=== PATIENT | male | born 1960 | race Caucasian/White ===

== ENCOUNTER 2018-09-30 06:40 | Inpatient (IN) | payer OTHER ==
[2018-09-30] MEDS ORDERED: DESFLURANE 15 MIN (07:00)
[2018-09-30] MEDS ORDERED: ROCURONIUM 50 MG INJ ×2 (07:00→08:02)
[2018-09-30] MEDS ORDERED: PROPOFOL 200 MG INJ (07:00)
[2018-09-30] MEDS ORDERED: HEPARIN 1000 UNITS/ML 10 ML INJ (07:59)
[2018-09-30] MEDS ORDERED: BUPIVACAINE 0.5%/EPI (SDV) 30 ML INJ ×2 (07:59→14:45)
[2018-09-30] MEDS: VANCOMYCIN 1 GM (PMX) 250 ML IVPB (08:00)
[2018-09-30] MEDS ORDERED: SUCCINYLCHOLINE CHLORIDE 100 MG/5 ML SYG IV (08:02)
[2018-09-30] MEDS ORDERED: MIDAZOLAM 1 MG/ML 2 ML INJ (08:03)
[2018-09-30] MEDS ORDERED: LIDOCAINE 1% (MDV) 20 ML INJ (08:07)
[2018-09-30] MEDS ORDERED: DEXAMETHASONE 4 MG/ML 5 ML INJ (09:10)
[2018-09-30] MEDS ORDERED: ONDANSETRON 4 MG INJ (09:10)
[2018-09-30] MEDS: CEFAZOLIN 1 GM INJ (09:14)
[2018-09-30] MEDS: THROMBIN 5000 UNIT VIAL (09:14)
[2018-09-30] MEDS: GELATIN SIZE 100 SPONGE (09:14)
[2018-09-30] MEDS ORDERED: LABETALOL HCL 20MG INJ (09:15)
[2018-09-30] MEDS ORDERED: ROPIVACAINE 0.5 % 30 ML VIAL (12:15)
[2018-09-30] MEDS ORDERED: SUGAMMADEX SODIUM 200 MG/2 ML VIAL IV (12:40)
[2018-09-30] MEDS ORDERED: PHENYLephrine (100 MCG/ML) 5ML SYG (15:17)
[2018-09-30] MEDS ORDERED: METOPROLOL 5 MG INJ (15:17)
[2018-09-30] MEDS ORDERED: SOD CHLORIDE 0.45% 1,000 ML IV (15:25)
[2018-09-30] MEDS ORDERED: ACETAMINOPHEN 325 MG TAB PO (15:30)
[2018-09-30] MEDS ORDERED: HYDROCODONE/APAP (5/325) TAB PO ×2 (15:30)
[2018-09-30] MEDS ORDERED: NACL 0.9% 3 ML SYG IV (15:30)
[2018-09-30] MEDS ORDERED: NALOXONE (0.4 MG/ML) INJ IV (15:30)
[2018-09-30] MEDS ORDERED: PROCHLORPERAZINE 10 MG TAB PO (15:30)
[2018-09-30] MEDS: HYDROmorphONE 1 MG/5 ML IV SYRINGE IV ×3 (15:55→16:05)
[2018-09-30] MEDS ORDERED: HYDROmorphONE 1 MG/5 ML IV SYRINGE IV ×3 (15:56→16:06)
[2018-09-30] MEDS ORDERED: hydrALAzine 20 MG INJ IV (16:00)
[2018-09-30] MEDS ORDERED: ONDANSETRON 4 MG INJ IV ×2 (16:00→17:00)
[2018-09-30] MEDS ORDERED: LABETALOL HCL 20MG INJ IV (16:00)
[2018-09-30] MEDS ORDERED: MEPERIDINE 25 MG INJ (16:30)
[2018-09-30 16:46] LABS: ADD MAN DIFF? NO
[2018-09-30 16:47] LABS: WHITE BLOOD COUNT 9.7 10^3/ul (4.8-10.8)
[2018-09-30 16:47] LABS: ABNORMAL IP MESSAGE 1; BASOPHILS % 0.2 % (0.0-2.0); EOSINOPHILS % 0.1 % (0.0-7.0); HEMATOCRIT 32.2 % (42.0-52.0); HEMOGLOBIN 11.3 g/dl (14.0-18.0); LYMPHOCYTES # 0.5 10^3/ul (0.8-2.9); LYMPHOCYTES % 5.4 % (15.0-51.0); MEAN CORPUSCULAR HGB CONC 35.1 g/dl (32.0-37.0); MEAN CORPUSCULAR VOLUME 85.4 fl (82.0-101.0); MEAN PLATELET VOLUME 9.5 fl (7.4-10.4); MONOCYTE # 0.4 10^3/ul (0.3-0.9); MONOCYTES % 4.1 % (0.0-11.0); NEUTROPHIL # 8.7 10^3/ul (1.6-7.5); NEUTROPHILS % 89.6 % (39.0-77.0); PLATELET COUNT 212 10^3/UL (140-415); POSITIVE DIFF @See below; RED BLOOD COUNT 3.77 10^6/ul (4.70-6.10); RED CELL DISTRIBUTION WIDTH 13.2 % (11.5-14.5)
[2018-09-30] MEDS: MEPERIDINE 25 MG INJ IV (16:49)
[2018-09-30] MEDS: DIPHENHYDRAMINE 50 MG INJ IV (16:49)
[2018-09-30] MEDS: HYDROmorphONE 0.2 MG/ML PCA IV (16:58)
[2018-09-30 17:05] LABS: ANION GAP 12 (5-13); BLOOD UREA NITROGEN 20 mg/dl (7-20); CARBON DIOXIDE 21 mmol/L (21-31); CHLORIDE 102 mmol/L (97-110); CREATINE KINASE 490 IU/L (23-200); Estimated GFR 58 mL/min (>60); GLUCOSE 244 mg/dl (70-220); POTASSIUM 4.3 mmol/L (3.5-5.1); SODIUM 135 mmol/L (135-144)
[2018-09-30 17:07] LABS: CALCIUM 8.3 mg/dl (8.4-10.2); CREATININE 1.27 mg/dl (0.61-1.24)
[2018-09-30 17:17] LABS: CK INDEX 0.6; TROPONIN-I < 0.012 ng/ml (0.000-0.120)
[2018-09-30 17:20] LABS: CK-MB 2.99 ng/ml (0.0-2.4)
[2018-09-30] MEDS ORDERED: GLUCOSE GEL 15 GRAM TUBE BUCCAL (18:30)
[2018-09-30] MEDS ORDERED: GLUCAGON 1 MG INJ IM (18:30)
[2018-09-30] MEDS ORDERED: GLUCOSE GEL 15 GRAM TUBE PO ×2 (18:30)
[2018-09-30] MEDS ORDERED: DEXTROSE 50% 50 ML SYRINGE IV ×2 (18:30)
[2018-09-30] MEDS: SOD CHLORIDE 0.9% 1,000 ML IV (19:40)
[2018-09-30] MEDS: ONDANSETRON 4 MG INJ IV (19:59)
[2018-09-30] MEDS: ATORVASTATIN 80 MG TAB PO (21:00)
[2018-09-30] MEDS: AL HYDROX/MG HYDROX/SIMETH 30 ML CUP PO (22:45)
[2018-09-30] MEDS: CALCIUM CARBONATE 500 MG CHEW TAB PO (23:31)
[2018-10-01] MEDS: ACCU-CHEK XX (02:00)
[2018-10-01] MEDS: SOD CHLORIDE 0.9% 1,000 ML IV ×4 (02:19→23:56)
[2018-10-01] MEDS: CYCLOBENZAPRINE 10 MG TAB PO ×2 (03:23→12:40)
[2018-10-01] MEDS: ONDANSETRON 4 MG INJ IV ×2 (03:28→09:17)
[2018-10-01 05:27] LABS: HEMATOCRIT 30.5 % (42.0-52.0); HEMOGLOBIN 10.5 g/dl (14.0-18.0)
[2018-10-01 05:52] LABS: ANION GAP 8 (5-13); BLOOD UREA NITROGEN 16 mg/dl (7-20); CALCIUM 7.9 mg/dl (8.4-10.2); CARBON DIOXIDE 28 mmol/L (21-31); CHLORIDE 101 mmol/L (97-110); CREATININE 1.12 mg/dl (0.61-1.24); Estimated GFR > 60 mL/min (>60); GLUCOSE 159 mg/dl (70-220); POTASSIUM 3.9 mmol/L (3.5-5.1); SODIUM 137 mmol/L (135-144)
[2018-10-01 06:15] LABS: PHOSPHORUS 4.1 mg/dl (2.5-4.9)
[2018-10-01 06:15] LABS: MAGNESIUM 1.2 mg/dl (1.7-2.5)
[2018-10-01] MEDS: DOCUSATE SODIUM 100 MG CAP PO ×2 (08:38→20:55)
[2018-10-01] MEDS: LOSARTAN 50 MG TAB PO (08:38)
[2018-10-01] MEDS: metFORMIN 500 MG TAB PO ×2 (08:38→17:47)
[2018-10-01] MEDS: INSULIN ASPART [NOVOLOG] 3 ML PEN SC ×3 (08:41→17:46)
[2018-10-01] MEDS: HYDROmorphONE 0.2 MG/ML PCA IV ×2 (09:30→21:01)
[2018-10-01] MEDS: LORAZEPAM 2 MG INJ IV (11:32)
[2018-10-01] MEDS: MAGNESIUM SULFATE 3 GM in DEXTROSE 5% 100 ML IVPB (12:40)
[2018-10-01 13:28] LABS: CREATINE KINASE 846 IU/L (23-200)
[2018-10-01] MEDS ORDERED: DIAZEPAM 2 MG TAB PO (14:00)
[2018-10-01] MEDS: CALCIUM CARBONATE 500 MG CHEW TAB PO ×3 (14:06→21:00)
[2018-10-01] MEDS: DIAZEPAM 2 MG TAB PO ×2 (15:13→23:10)
[2018-10-01] MEDS: ATORVASTATIN 80 MG TAB PO (20:55)
[2018-10-02] MEDS: ACCU-CHEK XX (02:00)
[2018-10-02] MEDS: CYCLOBENZAPRINE 10 MG TAB PO ×2 (04:30→15:43)
[2018-10-02 05:16] LABS: ADD MAN DIFF? NO
[2018-10-02 05:19] LABS: WHITE BLOOD COUNT 7.7 10^3/ul (4.8-10.8)
[2018-10-02 05:19] LABS: BASOPHILS % 0.1 % (0.0-2.0); EOSINOPHILS % 0.3 % (0.0-7.0); HEMATOCRIT 29.2 % (42.0-52.0); HEMOGLOBIN 9.7 g/dl (14.0-18.0); LYMPHOCYTES # 0.6 10^3/ul (0.8-2.9); LYMPHOCYTES % 8.2 % (15.0-51.0); MEAN CORPUSCULAR HEMOGLOBIN 29.7 pg (29.0-33.0); MEAN CORPUSCULAR HGB CONC 33.2 g/dl (32.0-37.0); MEAN CORPUSCULAR VOLUME 89.3 fl (82.0-101.0); MEAN PLATELET VOLUME 9.6 fl (7.4-10.4); MONOCYTE # 0.7 10^3/ul (0.3-0.9); MONOCYTES % 8.8 % (0.0-11.0); NEUTROPHIL # 6.4 10^3/ul (1.6-7.5); NEUTROPHILS % 82.3 % (39.0-77.0); PLATELET COUNT 177 10^3/UL (140-415); RED BLOOD COUNT 3.27 10^6/ul (4.70-6.10); RED CELL DISTRIBUTION WIDTH 13.5 % (11.5-14.5)
[2018-10-02 05:43] LABS: ALANINE AMINOTRANSFERASE 35 IU/L (13-69); ALBUMIN 2.8 g/dl (3.3-4.9); ALBUMIN/GLOBULIN RATIO 1.12; ALKALINE PHOSPHATASE 54 IU/L (42-121); ANION GAP 3 (5-13); ASPARTATE AMINO TRANSFERASE 43 IU/L (15-46); BLOOD UREA NITROGEN 8 mg/dl (7-20); CALCIUM 7.3 mg/dl (8.4-10.2); CARBON DIOXIDE 30 mmol/L (21-31); CHLORIDE 104 mmol/L (97-110); CREATINE KINASE 981 IU/L (23-200); CREATININE 1.03 mg/dl (0.61-1.24); Estimated GFR > 60 mL/min (>60); GLUCOSE 154 mg/dl (70-220); MAGNESIUM 1.7 mg/dl (1.7-2.5); POTASSIUM 4.1 mmol/L (3.5-5.1); SODIUM 137 mmol/L (135-144); TOTAL PROTEIN 5.3 g/dl (6.1-8.1)
[2018-10-02] MEDS: SOD CHLORIDE 0.9% 1,000 ML IV ×2 (07:41→17:57)
[2018-10-02] MEDS: HYDROmorphONE 0.2 MG/ML PCA IV (09:05)
[2018-10-02] MEDS: DOCUSATE SODIUM 100 MG CAP PO ×2 (09:08→20:13)
[2018-10-02] MEDS: CALCIUM CARBONATE 500 MG CHEW TAB PO ×4 (09:08→20:13)
[2018-10-02] MEDS: LOSARTAN 50 MG TAB PO (09:09)
[2018-10-02] MEDS: INSULIN ASPART [NOVOLOG] 3 ML PEN SC ×3 (09:11→17:58)
[2018-10-02] MEDS: metFORMIN 500 MG TAB PO ×2 (09:14→17:57)
[2018-10-02] MEDS: DIAZEPAM 2 MG TAB PO (11:29)
[2018-10-02] MEDS: MAGNESIUM SULFATE 2 GM/50 ML 50 ML IVPB (11:31)
[2018-10-02] MEDS: LIDOCAINE 5% PATCH TD (12:51)
[2018-10-02] MEDS: DEXAMETHASONE 10 MG/ML 1 ML INJ IV (15:43)
[2018-10-02] MEDS: ATORVASTATIN 80 MG TAB PO (20:13)
[2018-10-03] MEDS: SOD CHLORIDE 0.9% 1,000 ML IV ×4 (00:57→18:19)
[2018-10-03] MEDS: ACCU-CHEK XX (02:00)
[2018-10-03] MEDS: DEXAMETHASONE 10 MG/ML 1 ML INJ IV (02:38)
[2018-10-03] MEDS: HYDROmorphONE 0.2 MG/ML PCA IV (04:35)
[2018-10-03 05:35] LABS: ADD MAN DIFF? NO
[2018-10-03 05:37] LABS: WHITE BLOOD COUNT 7.5 10^3/ul (4.8-10.8)
[2018-10-03 05:37] LABS: ABNORMAL IP MESSAGE 1; BASOPHILS % 0.1 % (0.0-2.0); HEMATOCRIT 25.6 % (42.0-52.0); HEMOGLOBIN 8.7 g/dl (14.0-18.0); LYMPHOCYTES # 0.3 10^3/ul (0.8-2.9); LYMPHOCYTES % 4.1 % (15.0-51.0); MEAN CORPUSCULAR HEMOGLOBIN 29.5 pg (29.0-33.0); MEAN CORPUSCULAR VOLUME 86.8 fl (82.0-101.0); MONOCYTE # 0.3 10^3/ul (0.3-0.9); MONOCYTES % 4.1 % (0.0-11.0); NEUTROPHIL # 6.8 10^3/ul (1.6-7.5); NEUTROPHILS % 90.9 % (39.0-77.0); PLATELET COUNT 163 10^3/UL (140-415); POSITIVE DIFF @See below; RED BLOOD COUNT 2.95 10^6/ul (4.70-6.10); RED CELL DISTRIBUTION WIDTH 13.1 % (11.5-14.5)
[2018-10-03 05:57] LABS: ALANINE AMINOTRANSFERASE 36 IU/L (13-69); ALBUMIN 2.9 g/dl (3.3-4.9); ALBUMIN/GLOBULIN RATIO 1.07; ALKALINE PHOSPHATASE 63 IU/L (42-121); ANION GAP 7 (5-13); ASPARTATE AMINO TRANSFERASE 49 IU/L (15-46); BILIRUBIN,INDIRECT 0.7 mg/dl (0-1.1); BILIRUBIN,TOTAL 0.7 mg/dl (0.2-1.3); BLOOD UREA NITROGEN 9 mg/dl (7-20); CALCIUM 7.8 mg/dl (8.4-10.2); CARBON DIOXIDE 26 mmol/L (21-31); CHLORIDE 103 mmol/L (97-110); CREATINE KINASE 1040 IU/L (23-200); CREATININE 0.87 mg/dl (0.61-1.24); Estimated GFR > 60 mL/min (>60); GLUCOSE 149 mg/dl (70-220); MAGNESIUM 1.9 mg/dl (1.7-2.5); POTASSIUM 4.2 mmol/L (3.5-5.1); SODIUM 136 mmol/L (135-144); TOTAL PROTEIN 5.6 g/dl (6.1-8.1)
[2018-10-03] MEDS ORDERED: HYDROmorphONE 1 MG/ML SYG IV (08:00)
[2018-10-03] MEDS: INSULIN ASPART [NOVOLOG] 3 ML PEN SC ×3 (08:47→17:25)
[2018-10-03] MEDS: DOCUSATE SODIUM 100 MG CAP PO ×2 (08:51→20:23)
[2018-10-03] MEDS: metFORMIN 500 MG TAB PO ×2 (08:51→18:14)
[2018-10-03] MEDS: LOSARTAN 50 MG TAB PO (08:52)
[2018-10-03] MEDS: CALCIUM CARBONATE 500 MG CHEW TAB PO ×4 (08:52→20:23)
[2018-10-03] MEDS: LIDOCAINE 5% PATCH TD (08:53)
[2018-10-03] MEDS: OXYCODONE/ACETAMINOPHEN (5/325) TAB PO (09:30)
[2018-10-03] MEDS ORDERED: OXYCODONE/ACETAMINOPHEN (5/325) TAB PO (09:30)
[2018-10-03] MEDS: ONDANSETRON 4 MG INJ IV (10:32)
[2018-10-03] MEDS: METOCLOPRAMIDE 10 MG INJ IV (13:12)
[2018-10-03] MEDS: PANTOPRAZOLE 40 MG INJ IV (13:35)
[2018-10-03] MEDS: HYDROmorphONE 2 MG TAB PO (20:22)
[2018-10-03] MEDS: ATORVASTATIN 80 MG TAB PO (20:23)
[2018-10-03] MEDS: CYCLOBENZAPRINE 10 MG TAB PO (20:24)
[2018-10-04] MEDS: ACCU-CHEK XX (01:48)
[2018-10-04] MEDS: DIAZEPAM 2 MG TAB PO (02:11)
[2018-10-04] MEDS: HYDROmorphONE 2 MG TAB PO ×3 (02:11→18:21)
[2018-10-04] MEDS: PANTOPRAZOLE (EC) 40 MG TAB PO (05:24)
[2018-10-04 05:40] LABS: ADD MAN DIFF? NO
[2018-10-04 05:48] LABS: WHITE BLOOD COUNT 8.1 10^3/ul (4.8-10.8)
[2018-10-04 05:48] LABS: BASOPHILS % 0.1 % (0.0-2.0); EOSINOPHILS % 0.4 % (0.0-7.0); HEMATOCRIT 26.7 % (42.0-52.0); HEMOGLOBIN 9.1 g/dl (14.0-18.0); LYMPHOCYTES # 0.7 10^3/ul (0.8-2.9); LYMPHOCYTES % 8.9 % (15.0-51.0); MEAN CORPUSCULAR HEMOGLOBIN 29.4 pg (29.0-33.0); MEAN CORPUSCULAR HGB CONC 34.1 g/dl (32.0-37.0); MEAN CORPUSCULAR VOLUME 86.4 fl (82.0-101.0); MEAN PLATELET VOLUME 9.6 fl (7.4-10.4); MONOCYTE # 0.6 10^3/ul (0.3-0.9); MONOCYTES % 6.8 % (0.0-11.0); NEUTROPHIL # 6.7 10^3/ul (1.6-7.5); NEUTROPHILS % 83.3 % (39.0-77.0); PLATELET COUNT 215 10^3/UL (140-415); RED BLOOD COUNT 3.09 10^6/ul (4.70-6.10); RED CELL DISTRIBUTION WIDTH 13.3 % (11.5-14.5)
[2018-10-04 06:03] LABS: CREATINE KINASE 514 IU/L (23-200)
[2018-10-04 06:09] LABS: ANION GAP 4 (5-13); BLOOD UREA NITROGEN 14 mg/dl (7-20); CALCIUM 7.9 mg/dl (8.4-10.2); CARBON DIOXIDE 29 mmol/L (21-31); CHLORIDE 103 mmol/L (97-110); CREATININE 0.94 mg/dl (0.61-1.24); Estimated GFR > 60 mL/min (>60); GLUCOSE 183 mg/dl (70-220); PHOSPHORUS 2.1 mg/dl (2.5-4.9); SODIUM 136 mmol/L (135-144)
[2018-10-04] MEDS: CALCIUM CARBONATE 500 MG CHEW TAB PO ×4 (08:18→21:10)
[2018-10-04] MEDS: CYCLOBENZAPRINE 10 MG TAB PO ×2 (08:19→14:27)
[2018-10-04] MEDS: DOCUSATE SODIUM 100 MG CAP PO ×2 (08:19→21:00)
[2018-10-04] MEDS: LOSARTAN 50 MG TAB PO (08:20)
[2018-10-04] MEDS: INSULIN ASPART [NOVOLOG] 3 ML PEN SC ×3 (09:54→18:20)
[2018-10-04] MEDS: LIDOCAINE 5% PATCH TD (09:55)
[2018-10-04] MEDS: SODIUM PHOSPHATE 20 MEQ in SOD CHLORIDE 0.9% 250 ML IVPB (10:30)
[2018-10-04] MEDS: metFORMIN 500 MG TAB PO ×2 (10:37→18:44)
[2018-10-04] MEDS: LACTULOSE 30ML CUP PO (13:07)
[2018-10-04] MEDS ORDERED: DEXAMETHASONE 10 MG/ML 1 ML INJ IV (15:00)
[2018-10-04] MEDS: CEPASTAT LOZENGE MT ×2 (16:47→18:19)
[2018-10-04] MEDS: DEXAMETHASONE 10 MG/ML 1 ML INJ IV ×2 (16:50→23:41)
[2018-10-04] MEDS: ATORVASTATIN 80 MG TAB PO (21:10)
[2018-10-04] MEDS: GABAPENTIN 300 MG CAP PO (21:10)
[2018-10-05] MEDS: ACCU-CHEK XX (02:00)
[2018-10-05] MEDS: HYDROmorphONE 2 MG TAB PO ×4 (05:14→23:53)
[2018-10-05] MEDS: PANTOPRAZOLE (EC) 40 MG TAB PO (05:14)
[2018-10-05] MEDS: LOSARTAN 50 MG TAB PO (08:58)
[2018-10-05] MEDS: INSULIN ASPART [NOVOLOG] 3 ML PEN SC ×3 (08:58→18:09)
[2018-10-05] MEDS: CALCIUM CARBONATE 500 MG CHEW TAB PO ×4 (08:58→20:33)
[2018-10-05] MEDS: metFORMIN 500 MG TAB PO ×2 (08:59→18:06)
[2018-10-05] MEDS: CYCLOBENZAPRINE 10 MG TAB PO ×2 (08:59→14:51)
[2018-10-05] MEDS: GABAPENTIN 300 MG CAP PO ×3 (09:00→20:33)
[2018-10-05] MEDS: DOCUSATE SODIUM 100 MG CAP PO ×2 (09:00→20:34)
[2018-10-05] MEDS: DEXAMETHASONE 10 MG/ML 1 ML INJ IV (09:02)
[2018-10-05] MEDS: LIDOCAINE 5% PATCH TD (09:02)
[2018-10-05] MEDS: DIAZEPAM 2 MG TAB PO (19:21)
[2018-10-05] MEDS: ATORVASTATIN 80 MG TAB PO (20:33)
[2018-10-06] MEDS: ACCU-CHEK XX (01:27)
[2018-10-06] MEDS: HYDROmorphONE 2 MG TAB PO ×2 (04:51→08:50)
[2018-10-06] MEDS: CYCLOBENZAPRINE 10 MG TAB PO (04:54)
[2018-10-06 05:20] LABS: ADD MAN DIFF? NO
[2018-10-06] MEDS: PANTOPRAZOLE (EC) 40 MG TAB PO (05:32)
[2018-10-06 05:36] LABS: BASOPHILS % 0.2 % (0.0-2.0); EOSINOPHILS % 0.5 % (0.0-7.0); HEMATOCRIT 27.2 % (42.0-52.0); HEMOGLOBIN 9.4 g/dl (14.0-18.0); LYMPHOCYTES # 1.2 10^3/ul (0.8-2.9); LYMPHOCYTES % 18.3 % (15.0-51.0); MEAN CORPUSCULAR HEMOGLOBIN 30.3 pg (29.0-33.0); MEAN CORPUSCULAR HGB CONC 34.6 g/dl (32.0-37.0); MEAN CORPUSCULAR VOLUME 87.7 fl (82.0-101.0); MEAN PLATELET VOLUME 9.2 fl (7.4-10.4); MONOCYTE # 0.5 10^3/ul (0.3-0.9); MONOCYTES % 7.9 % (0.0-11.0); NEUTROPHIL # 4.7 10^3/ul (1.6-7.5); PLATELET COUNT 233 10^3/UL (140-415); RED CELL DISTRIBUTION WIDTH 13.2 % (11.5-14.5)
[2018-10-06 05:36] LABS: WHITE BLOOD COUNT 6.5 10^3/ul (4.8-10.8)
[2018-10-06 05:40] LABS: IRON 57 ug/dl (35-150)
[2018-10-06 05:42] LABS: ALANINE AMINOTRANSFERASE 39 IU/L (13-69); ALBUMIN 2.9 g/dl (3.3-4.9); ALBUMIN/GLOBULIN RATIO 1.03; ALKALINE PHOSPHATASE 59 IU/L (42-121); ANION GAP 4 (5-13); ASPARTATE AMINO TRANSFERASE 26 IU/L (15-46); BILIRUBIN,INDIRECT 0.5 mg/dl (0-1.1); BILIRUBIN,TOTAL 0.5 mg/dl (0.2-1.3); BLOOD UREA NITROGEN 22 mg/dl (7-20); CALCIUM 8.6 mg/dl (8.4-10.2); CARBON DIOXIDE 28 mmol/L (21-31); CHLORIDE 106 mmol/L (97-110); Estimated GFR > 60 mL/min (>60); GLUCOSE 165 mg/dl (70-220); POTASSIUM 4.1 mmol/L (3.5-5.1); SODIUM 138 mmol/L (135-144); TOTAL PROTEIN 5.7 g/dl (6.1-8.1)
[2018-10-06 05:50] LABS: % IRON SATURATION 24 % SAT (22-52); TOTAL IRON BINDING CAPACITY 240 ug/dl (241-421)
[2018-10-06] MEDS: INSULIN ASPART [NOVOLOG] 3 ML PEN SC ×2 (07:20→13:20)
[2018-10-06] MEDS: CALCIUM CARBONATE 500 MG CHEW TAB PO ×2 (08:39→13:14)
[2018-10-06] MEDS: GABAPENTIN 300 MG CAP PO ×2 (08:39→13:14)
[2018-10-06] MEDS: DOCUSATE SODIUM 100 MG CAP PO (08:39)
[2018-10-06] MEDS: LOSARTAN 50 MG TAB PO (08:40)
[2018-10-06] MEDS: LIDOCAINE 5% PATCH TD (08:41)
[2018-10-06] MEDS: metFORMIN 500 MG TAB PO (08:51)
== END 2018-10-06 15:01 | disposition home or self-care (01) | DRG 455 ==
LOC: REC 06:40 → MS1 17:52
PROVIDERS: Orthopaedic Surgery
PROC: 0SG00A0 Fusion of Lumbar Vertebral Joint with Interbody Fusion Device, Anterior Approach, Anterior Column, Open Approach (ICD-10-PCS; principal; 2018-09-30 08:00)
PROC: 0SG00K1 Fusion of Lumbar Vertebral Joint with Nonautologous Tissue Substitute, Posterior Approach, Posterior Column, Open Approach (ICD-10-PCS; 2018-09-30 08:00)
PROC: 0SG30A0 Fusion of Lumbosacral Joint with Interbody Fusion Device, Anterior Approach, Anterior Column, Open Approach (ICD-10-PCS; 2018-09-30 08:00)
PROC: 0SG30K1 Fusion of Lumbosacral Joint with Nonautologous Tissue Substitute, Posterior Approach, Posterior Column, Open Approach (ICD-10-PCS; 2018-09-30 08:00)
PROC: 0SB40ZZ Excision of Lumbosacral Disc, Open Approach (ICD-10-PCS; 2018-09-30 08:00)
PROC: 0SB20ZZ Excision of Lumbar Vertebral Disc, Open Approach (ICD-10-PCS; 2018-09-30 08:00)
PROC: 4A11X4G Monitoring of Peripheral Nervous Electrical Activity, Intraoperative, External Approach (ICD-10-PCS; 2018-09-30 08:00)
DX: M51.16 Intervertebral disc disorders with radiculopathy, lumbar region (principal); M51.17 Intervertebral disc disorders with radiculopathy, lumbosacral region; M48.07 Spinal stenosis, lumbosacral region; M48.061 Spinal stenosis, lumbar region without neurogenic claudication; I10 Essential (primary) hypertension; E78.5 Hyperlipidemia, unspecified; M62.262 Nontraumatic ischemic infarction of muscle, left lower leg; E11.9 Type 2 diabetes mellitus without complications
CPT/HCPCS: 71045; 72110; 72131; 72158; 80048; 80053; 82550; 82553; 82728; 82962; 83540; 83735; 84100; 84484; 85014; 85018; 85025; 86850; 86900; 86901; 86920; 87086; 93926; 93971; 97116; 97161; 97530

== ENCOUNTER 2018-12-02 07:55 | Inpatient (IN) | payer OTHER ==
[~2018-12-02 07:55] MED LIST: PROPOFOL 200 MG INJ
[2018-12-02] MEDS: LACTATED RINGER'S 1,000 ML IV* (10:21)
[2018-12-02] MEDS ORDERED: MIDAZOLAM 1 MG/ML 2 ML INJ (11:28)
[2018-12-02] MEDS ORDERED: PHENYLephrine 10 MG INJ (11:55)
[2018-12-02] MEDS: THROMBIN (BOVINE) 5,000 UNIT VIAL TP ×2 (12:07→14:13)
[2018-12-02] MEDS: POLYMYXIN/BACITRACIN 1L IRRIG (12:07)
[2018-12-02] MEDS: BUPIVACAINE 0.5%/EPI (SDV) 30 ML INJ (12:07)
[2018-12-02] MEDS: BETAMET NA PHOS/AC(6 MG/ML) 5ML INJ (13:50)
[2018-12-02] MEDS: GELATIN SIZE 100 SPONGE (14:05)
[2018-12-02] MEDS ORDERED: THROMBIN (BOVINE) 5,000 UNIT VIAL TP (14:06)
[2018-12-02] MEDS ORDERED: LIDOCAINE 2% (SDV) 5 ML INJ (14:26)
[2018-12-02] MEDS ORDERED: CEFAZOLIN 1 GM INJ (14:26)
[2018-12-02] MEDS ORDERED: ROCURONIUM 50 MG INJ (14:26)
[2018-12-02] MEDS ORDERED: ETOMIDATE 20 MG INJ (14:26)
[2018-12-02] MEDS ORDERED: ONDANSETRON 4 MG INJ (14:29)
[2018-12-02] MEDS ORDERED: ACETAMINOPHEN 325 MG TAB PO (15:00)
[2018-12-02] MEDS ORDERED: NALOXONE (0.4 MG/ML) INJ IV (15:00)
[2018-12-02] MEDS ORDERED: NACL 0.9% 3 ML SYG IV (15:00)
[2018-12-02] MEDS ORDERED: PROCHLORPERAZINE 10 MG TAB PO (15:00)
[2018-12-02] MEDS ORDERED: AL HYDROX/MG HYDROX/SIMETH 30 ML CUP PO (15:00)
[2018-12-02] MEDS: HYDROmorphONE 0.2 MG/ML PCA IV (15:23)
[2018-12-02] MEDS ORDERED: METOCLOPRAMIDE 10 MG INJ IV (15:30)
[2018-12-02] MEDS ORDERED: LABETALOL HCL 20MG INJ IV (15:30)
[2018-12-02] MEDS ORDERED: MEPERIDINE 25 MG INJ IV (15:30)
[2018-12-02] MEDS ORDERED: hydrALAzine 20 MG INJ IV (15:30)
[2018-12-02] MEDS ORDERED: HYDROmorphONE 1 MG/5 ML IV SYRINGE IV (15:30)
[2018-12-02] MEDS ORDERED: ONDANSETRON 4 MG INJ IV (15:30)
[2018-12-02] MEDS ORDERED: DIPHENHYDRAMINE 50 MG INJ IV (15:30)
[2018-12-02] MEDS: FENTAnyl 50 MCG/ML VIAL IV (15:48)
[2018-12-02] MEDS: HYDROmorphONE 1 MG/5 ML IV SYRINGE IV (15:49)
[2018-12-02] MEDS: ONDANSETRON 4 MG INJ IV (16:22)
[2018-12-02] MEDS: CEFAZOLIN 1 GM/50 ML (PMX) 50 ML IVPB (17:41)
[2018-12-02] MEDS: SOD CHLORIDE 0.9% 1,000 ML IV (18:17)
[2018-12-02] MEDS ORDERED: GLUCAGON 1 MG INJ IM (18:30)
[2018-12-02] MEDS ORDERED: GLUCOSE GEL 15 GRAM TUBE PO ×2 (18:30)
[2018-12-02] MEDS ORDERED: DEXTROSE 50% 50 ML SYRINGE IV ×2 (18:30)
[2018-12-02] MEDS ORDERED: GLUCOSE GEL 15 GRAM TUBE BUCCAL (18:30)
[2018-12-02] MEDS: GABAPENTIN 300 MG CAP PO (21:30)
[2018-12-02] MEDS: ATORVASTATIN 80 MG TAB PO (21:30)
[2018-12-02] MEDS: ACETAMINOPHEN 1000MG/100ML IV 100 ML IVPB (22:07)
[2018-12-03] MEDS: CEFAZOLIN 1 GM/50 ML (PMX) 50 ML IVPB ×3 (00:31→13:05)
[2018-12-03] MEDS: ACCU-CHEK XX (02:00)
[2018-12-03] MEDS: ACETAMINOPHEN 1000MG/100ML IV 100 ML IVPB ×3 (04:31→16:00)
[2018-12-03 05:48] LABS: HEMATOCRIT 33.2 % (42.0-52.0); HEMOGLOBIN 10.9 g/dl (14.0-18.0)
[2018-12-03 06:13] LABS: ANION GAP 6 (5-13); BLOOD UREA NITROGEN 18 mg/dl (7-20); CALCIUM 8.6 mg/dl (8.4-10.2); CARBON DIOXIDE 33 mmol/L (21-31); CHLORIDE 100 mmol/L (97-110); CREATININE 1.08 mg/dl (0.61-1.24); Estimated GFR > 60 mL/min (>60); GLUCOSE 140 mg/dl (70-220); POTASSIUM 4.3 mmol/L (3.5-5.1); SODIUM 139 mmol/L (135-144)
[2018-12-03 06:14] LABS: MAGNESIUM 1.4 mg/dl (1.7-2.5)
[2018-12-03 06:14] LABS: PHOSPHORUS 6.1 mg/dl (2.5-4.9)
[2018-12-03] MEDS: SOD CHLORIDE 0.9% 1,000 ML IV ×2 (06:55→19:00)
[2018-12-03] MEDS: INSULIN ASPART [NOVOLOG] 3 ML PEN SC ×3 (08:00→17:38)
[2018-12-03] MEDS: DOCUSATE SODIUM 100 MG CAP PO ×2 (08:49→20:45)
[2018-12-03] MEDS: metFORMIN 500 MG TAB PO ×2 (08:49→17:37)
[2018-12-03] MEDS: GABAPENTIN 300 MG CAP PO ×3 (08:49→20:45)
[2018-12-03] MEDS: LOSARTAN 50 MG TAB PO (08:50)
[2018-12-03] MEDS ORDERED: HYDROmorphONE 0.5 MG/0.5 ML SYG IV (10:00)
[2018-12-03] MEDS: ONDANSETRON 4 MG INJ IV (10:38)
[2018-12-03] MEDS: OXYCODONE/ACETAMINOPHEN (10/325) TAB PO ×3 (15:40→23:48)
[2018-12-03] MEDS: CYCLOBENZAPRINE 10 MG TAB PO (17:15)
[2018-12-03] MEDS: ATORVASTATIN 80 MG TAB PO (20:45)
[2018-12-04] MEDS: CYCLOBENZAPRINE 10 MG TAB PO (01:40)
[2018-12-04] MEDS: ACCU-CHEK XX (02:00)
[2018-12-04] MEDS: OXYCODONE/ACETAMINOPHEN (10/325) TAB PO ×2 (05:52→11:05)
[2018-12-04] MEDS: SOD CHLORIDE 0.9% 1,000 ML IV (07:30)
[2018-12-04] MEDS: DOCUSATE SODIUM 100 MG CAP PO (08:30)
[2018-12-04] MEDS: GABAPENTIN 300 MG CAP PO ×2 (08:31→12:43)
[2018-12-04] MEDS: LOSARTAN 50 MG TAB PO (08:31)
[2018-12-04] MEDS: metFORMIN 500 MG TAB PO (08:34)
[2018-12-04] MEDS: INSULIN ASPART [NOVOLOG] 3 ML PEN SC ×2 (08:34→12:44)
== END 2018-12-04 15:50 | disposition home or self-care (01) | DRG 520 ==
LOC: REC 07:55 → MS1 16:14
PROVIDERS: Orthopaedic Surgery
PROC: 0SB40ZZ Excision of Lumbosacral Disc, Open Approach (ICD-10-PCS; principal; 2018-12-02 11:23)
PROC: 01NB0ZZ Release Lumbar Nerve, Open Approach (ICD-10-PCS; 2018-12-02 11:23)
DX: M48.061 Spinal stenosis, lumbar region without neurogenic claudication (principal); M51.17 Intervertebral disc disorders with radiculopathy, lumbosacral region; I10 Essential (primary) hypertension; K21.9 Gastro-esophageal reflux disease without esophagitis; E78.5 Hyperlipidemia, unspecified; I25.10 Atherosclerotic heart disease of native coronary artery without angina pectoris; E11.9 Type 2 diabetes mellitus without complications; Z79.84 Long term (current) use of oral hypoglycemic drugs; Z87.891 Personal history of nicotine dependence; Z88.0 Allergy status to penicillin
CPT/HCPCS: 72110; 80048; 82962; 83735; 84100; 85014; 85018; 87086; 88304; 97110; 97116; 97162; 97530